=== PATIENT | male | born 1955 ===

== ENCOUNTER 2016-07-11 10:53 | Emergency (ER) | payer MEDICARE, MEDICAID ==
[2016-07-11 11:07] VITALS: RESP 18; TEMP 97.8; O2SAT 98
[2016-07-11 12:16] LABS: RBC URINE < 1 /hpf (0-3); URINE BILIRUBIN NEGATIVE (NEGATIVE); URINE BLOOD NEGATIVE (NEGATIVE); URINE COLOR Yellow (YELLOW); URINE GLUCOSE (UA) 1+ mg/dL (Normal); URINE KETONE NEGATIVE (NEGATIVE); URINE LEUKOCYTE ESTERASE NEG Leu/uL (Negative); URINE PROTEIN NEGATIVE (NEGATIVE); URINE UROBILINOGEN NORMAL mg/dL (0.2-1.0); WBC URINE < 1 /hpf (0-5)
--- NOTE | 2016-07-11 12:48 | C.PDOC ---
History Of Present Illness 60 yo male w/PMHx of HTN, RhA, Psoriasis, chronic lower back pain, come in for evaluation of lower back pain exacerbation gradually developed for past 2 weeks. Pt admits, pain is localized, no-radiating, worse with movement. Similar pain in past. Denies fever, chills, known trauma or injury, abd. pain, N /V/D, UTI sx, saddle anesthesia, incontinence, denies weakness, sensory or vascular deficits to B/L LEs. Ambulate to ED for evaluation, not in any apparent distress. Time Seen by Provider: 07/11/16 11:39 Chief Complaint (Nursing): Back Pain History Per: Patient Onset/Duration Of Symptoms: Gradual Current Symptoms Are (Timing): Still Present Past Medical History Reviewed: Historical Data, Nursing Documentation, Vital Signs Vital Signs: Last Vital Signs Temp 97.8 F 07/11/16 11:07 Pulse 69 07/11/16 11:07 Resp 18 07/11/16 11:07 BP 147/73 07/11/16 11:07 Pulse Ox 98 07/11/16 11:07 - Medical History PMH: Arthritis, HTN, Hypercholesterolemia Surgical History: Appendectomy, Carotid Endarterectomy Family History: States: No Known Family Hx - Social History Hx Alcohol Use: Yes Hx Substance Use: No Review Of Systems Except As Marked, All Systems Reviewed And Found Negative. Constitutional: Negative for: Fever, Chills ENT: Negative for: Throat Pain Cardiovascular: Negative for: Chest Pain Respiratory: Negative for: Cough, Shortness of Breath Gastrointestinal: Negative for: Nausea, Vomiting, Abdominal Pain, Diarrhea Genitourinary: Negative for: Dysuria, Frequency, Incontinence Skin: Positive for: Rash (chronic) Neurological: Negative for: Weakness, Numbness, Altered Mental Status, Headache , Dizziness Physical Exam - Physical Exam Appears: Well, Non-toxic, No Acute Distress Skin: Warm, Dry, Rash (diffuse psoriatic-like rash to body) Head: Atraumatic, Normacephalic Eye(s): bilateral: Normal Inspection, PERRL, EOMI Nose: Normal Throat: Normal Neck: Normal, Normal ROM, Supple Cardiovascular: Rhythm Regular Respiratory: Normal Breath Sounds Gastrointestinal/Abdominal: Normal Exam Back: Normal Inspection, No CVA Tenderness, No Vertebral Tenderness, Paraspinal Tenderness (diffuse lumbar paraspinal tenderness.), Other (B/L flank tenderness. ) Extremity: Normal ROM, No Pedal Edema, No Deformity Neurological/Psych: Oriented x3, Normal Speech, Normal Motor, Normal Sensation, Normal Reflexes ED Course And Treatment O2 Sat by Pulse Oximetry: 98 Pulse Ox Interpretation: Normal Progress Note: On re-evaluation, pt is afebrile, hemodynamicaly stable. Non- toxic. Ambulatory in ED. Neck: (-) meningeal sign. ENT: no acute findings. Abd: benign, (-) guarding, (-) rebound. Neurologicaly intact. UA results review and appears normal. Pt has clinical findings c/w lower back strain. Pt advised on course of ds. ref. to F/u with PMD In 2-3 days for re-changes. Disposition Counseled Patient/Family Regarding: Studies Performed, Diagnosis, Need For Followup, Rx Given - Disposition Referrals: Larry Alvarez MD [Staff Provider] - Disposition: HOME/ ROUTINE Disposition Time: 12:10 Condition: STABLE Additional Instructions: Light duty to lower back, avoid heavy lifting, bending, any physical activity for 1 week Follow up with PMD In 2-3 days for re-evaluation. Return to ED if any worsening or new changes. Prescriptions: Methocarbamol [Robaxin] 500 mg PO TID #14 tab traMADol [Ultram] 50 mg PO TID #7 tab Instructions: Back Pain (ED) - Clinical Impression Clinical Impression: Low back pain
--- NOTE | 2016-07-11 12:56 | C.PDOC ---
History Of Present Illness The patient, a 60 y/o male whose PMHx includes chronic back pain, Psoriasis, Arthritis, and Rheumatoid Arthritis, presents to the ED for evaluation of diffuse lower back pain and bilateral flank which progressed gradually over 2 weeks. Patient admits to experiencing similar symptoms in the past. Otherwise, he denies fever, chills, abdominal pain, nausea ,vomiting, dyrusia, hematuria, saddles anesthesia, urinary/bowel incontinence, upper/lower extremity numbness/ weakness, or recent trauma/injury. Time Seen by Provider: 07/11/16 11:39 Chief Complaint (Nursing): Back Pain History Per: Patient History/Exam Limitations: no limitations Onset/Duration Of Symptoms: Gradual (2 weeks ) Current Symptoms Are (Timing): Still Present Quality Of Discomfort: "Pain" Previous Symptoms: Back Pain, Chronic Pain. denies: Prior Injury Associated Symptoms: denies: Incontinence, New Weakness, New Numbness Exacerbating Factor(s): Nothing Additional History Per: Patient Past Medical History Reviewed: Historical Data, Nursing Documentation, Vital Signs Vital Signs: Last Vital Signs Temp 97.8 F 07/11/16 11:07 Pulse 69 07/11/16 11:07 Resp 18 07/11/16 11:07 BP 147/73 07/11/16 11:07 Pulse Ox 98 07/11/16 11:07 - Medical History PMH: Arthritis, Back Problems, Rheumatoid Arthritis Surgical History: Appendectomy, Carotid Endarterectomy Family History: States: Unknown Family Hx - Social History Hx Alcohol Use: Yes Hx Substance Use: No Review Of Systems Except As Marked, All Systems Reviewed And Found Negative. Constitutional: Negative for: Fever, Chills Gastrointestinal: Negative for: Nausea, Vomiting, Abdominal Pain Genitourinary: Negative for: Dysuria, Hematuria Musculoskeletal: Positive for: Back Pain, Other (+bilateral flank pain ) Skin: Negative for: Other (no truama/injury ) Neurological: Negative for: Weakness, Numbness Physical Exam - Physical Exam Appears: Non-toxic, No Acute Distress Skin: Normal Color, Warm, Dry Head: Atraumatic, Normacephalic Eye(s): bilateral: Normal Inspection Oral Mucosa: Moist Neck: Normal ROM, Supple Chest: Symmetrical, No Deformity, No Tenderness Cardiovascular: Rhythm Regular, No Murmur Respiratory: Normal Breath Sounds, No Rhonchi, No Wheezing Gastrointestinal/Abdominal: Soft, No Tenderness, No Guarding, No Rebound Back: Paraspinal Tenderness (lumbar ), Other (+bilateral flank tenderness ) Extremity: Normal ROM, No Tenderness, No Calf Tenderness, Capillary Refill ( less than 2 seconds ), No Deformity, No Swelling Pulses: Left Dorsalis Pedis: Normal, Right Dorsalis Pedis: Normal Neurological/Psych: Oriented x3, Normal Speech, Normal Cognition Gait: Steady ED Course And Treatment O2 Sat by Pulse Oximetry: 98 (on RA) Pulse Ox Interpretation: Normal Progress Note: UA ordered and reviewed. Patient received Ultram PO. - PA / [employer] / Resident Statement MD/DO has reviewed & agrees with the documentation as recorded. - Scribe Statement The provider has reviewed the documentation as recorded by the Scribe (Linette Avelar) All medical record entries made by the Scribe were at my direction and personally dictated by me. I have reviewed the chart and agree that the record accurately reflects my personal performance of the history, physical exam, medical decision making, and the department course for this patient. I have also personally directed, reviewed, and agree with the discharge instructions and disposition.
[2016-07-11 13:01] VITALS: BP 120/72; PULSE 75
== END 2016-07-11 13:01 | disposition home or self-care (01) ==
LOC: C.ER 10:53
DX: M54.5 Low back pain (principal)

== ENCOUNTER 2017-10-18 06:00 | Day surgery (SDC) | payer MEDICARE, MEDICAID ==
[2017-10-18] MEDS ORDERED: Lactated Ringer's 1,000 ML IV ONE (08:06)
[2017-10-18] MEDS ORDERED: Propofol 10 mg/ml Inj (20 ML) ONE (08:07)
--- NOTE | 2017-10-18 08:09 | CP.SDSHP ---
Same Day Surgery H & P - History Proposed Procedure: EGD/ COLONSCOPY Pre-Op Diagnosis: SEE NOTES - Previous Medical/Surgical History Cardiac: Hypertension, Other Neuro: Backaches Misc: Other Pain: 4.Moderate Pain - Allergies Allergies: Allergies No Known Allergies Allergy (Verified 07/11/16 11:06) - Physical Exam General Appearance: N Vital Signs: Vital Signs 10/18/17 10/18/17 06:39 08:01 Temperature 97.8 F 97.8 F Pulse Rate 64 64 Respiratory 20 20 Rate Blood Pressure 144/71 144/71 O2 Sat by Pulse 100 100 Oximetry Mental Status: Alert & Oriented x3 Neuro: WNL Heart: WNL Lungs: WNL GI: Other - {Optional Preform as Required} Breast: WNL Abdomen: Other Rectal: Other Integument: WNL : Other Ortho: WNL ENT: WNL - Impression Pt. Evaluated Today:Candidate for Anesthesia & Procedure: Yes - Date & Time Time: 08:10 Short Stay Discharge - Short Stay Discharge Admitting Diagnosis/Reason for Visit: ABNORMAL WEIGHT LOSS Disposition: HOME/ ROUTINE
[2017-10-18 08:49] VITALS: TEMP 98
[2017-10-18] MEDS ORDERED: Pantoprazole 40 mg EC Tab PO ONE (09:00)
[2017-10-18] MEDS ORDERED: Belladonna-Phenobarbital PO ONE (09:05)
[2017-10-18 09:25] VITALS: O2SAT 98
[2017-10-18 09:29] VITALS: BP 141/77; PULSE 68; RESP 12
== END 2017-10-18 09:50 | disposition home or self-care (01) ==
LOC: C.ENDO 06:00
PROVIDERS: ATTEND Specialist
DX: K52.9 Noninfective gastroenteritis and colitis, unspecified (principal); K58.9 Irritable bowel syndrome, unspecified; K64.8 Other hemorrhoids; K29.70 Gastritis, unspecified, without bleeding; K44.9 Diaphragmatic hernia without obstruction or gangrene; K29.80 Duodenitis without bleeding
CPT/HCPCS: 43239; 45380; 88305; J2001; J2704; J7120